=== PATIENT | female | born 1970 | race Caucasian/White ===

== ENCOUNTER 2016-11-21 10:21 | Outpatient (CLI) ==
[2016-04-26 04:55] VITALS: BMI 41.4
[2016-11-21 10:47] LABS: BASOPHILS % (AUTO) 0.4 % (0.0-3.0); EOSINOPHILS # (AUTO) 0.1 K/ul (0.0-0.7); HEMATOCRIT 45.8 % (37.0-47.0); HEMOGLOBIN 16.1 g/dl (12.0-16.0); IMMATURE GRANULOCYTE % (AUTO) 0.2 % (0.0-5.0); LYMPHOCYTES # (AUTO) 2.1 K/uL (0.60-3.4); MEAN CORPUSCULAR HEMOGLOBIN 30.3 pg (27.0-31.0); MEAN CORPUSCULAR HGB CONC 35.2 (31.8-35.4); MEAN CORPUSCULAR VOLUME 86.3 fl (81.0-99.0); MONOCYTES # (AUTO) 0.3 K/uL (0.4-2.0); MONOCYTES % (AUTO) 6.3 (0-10); NEUTROPHILS # (AUTO) 2.9 K/ul (2.0-6.9); NEUTROPHILS % (AUTO) 53.1; PLATELET COUNT 255 10^3/uL (140-440); RED BLOOD COUNT 5.31 10^6/ul (4.20-5.40); WHITE BLOOD COUNT 5.39 K/ul (4.6-10.2)
[2016-11-21 11:07] LABS: ALBUMIN 3.7 g/dL (3.4-5.0); ALBUMIN/GLOBULIN RATIO 0.93; ANION GAP 12.3; BILIRUBIN,TOTAL 0.68 mg/dL (0.00-1.20); BUN/CREATININE RATIO 12.22; CALCIUM 8.9 mg/dL (8.2-10.2); CHOL/HDL RATIO 5.7 (4.5-5.5); CREATININE 0.9 mg/dL (0.60-1.30); POTASSIUM 4.3 mmol/L (3.5-5.10); TOTAL PROTEIN 7.7 g/dL (6.4-8.2)
== END 2016-11-21 10:22 | disposition home or self-care (01) ==
LOC: LAB 10:21
PROVIDERS: ATTEND Nurse Practitioner Family
DX: E66.9 Obesity, unspecified (principal); L02.91 Cutaneous abscess, unspecified
CPT/HCPCS: 36415; 80053; 80061; 84439; 84443; 85025

== ENCOUNTER 2016-12-05 09:23 | Outpatient (CLI) ==
[2016-04-26 04:55] VITALS: BMI 41.4
--- NOTE | 2016-12-06 09:29 | MAMMO ---
EXAM: Digital screening mammogram HISTORY: Screening COMPARISON: None FINDINGS: Digital MLO and CC views of the right and left breast were performed. There are scatter ed fibroglandular densities. There is no evidence for mass, asymmetry, distortion, or suspicious ca lcifications in either breast. IMPRESSION: 1. No evidence of malignancy in the right or left breast. 2. Annual screening mammogram is recommended in one year. BIRADS category 1, negative examination
== END 2016-12-05 09:24 | disposition home or self-care (01) ==
LOC: RAD 09:23
PROVIDERS: ATTEND Nurse Practitioner Family
DX: Z12.31 Encounter for screening mammogram for malignant neoplasm of breast (principal)

== ENCOUNTER 2017-07-14 01:15 | Emergency (ER) ==
[2017-07-14 01:20] VITALS: BP 95/56; TEMP 98.9; BMI 41.1
[2017-07-14] MEDS ORDERED: XOPENEX 1.25 MG NEB STA (01:29)
[2017-07-14] MEDS ORDERED: DECADRON 4 MG/ML SDV IM STA (01:29)
[2017-07-14] MEDS ORDERED: DUONEB NEB STA (01:29)
[2017-07-14 01:47] LABS: BASOPHILS % (AUTO) 0.4 % (0.0-3.0); EOSINOPHILS # (AUTO) 0.2 K/ul (0.0-0.7); EOSINOPHILS % (AUTO) 3.3 % (0.0-7.0); HEMATOCRIT 40.2 % (37.0-47.0); HEMOGLOBIN 14.2 g/dl (12.0-16.0); IMMATURE GRANULOCYTE % (AUTO) 0.3 % (0.0-5.0); LYMPHOCYTES # (AUTO) 1.8 K/uL (0.60-3.4); LYMPHOCYTES % (AUTO) 25.2 (10.0-50.0); MEAN CORPUSCULAR HEMOGLOBIN 30.1 pg (27.0-31.0); MEAN CORPUSCULAR HGB CONC 35.3 (31.8-35.4); MEAN CORPUSCULAR VOLUME 85.4 fl (81.0-99.0); MONOCYTES # (AUTO) 0.5 K/uL (0.4-2.0); MONOCYTES % (AUTO) 7.1 (0-10); NEUTROPHILS # (AUTO) 4.4 K/ul (2.0-6.9); NEUTROPHILS % (AUTO) 63.7; PLATELET COUNT 198 10^3/uL (140-440); RED BLOOD COUNT 4.71 10^6/ul (4.20-5.40); WHITE BLOOD COUNT 6.94 K/ul (4.6-10.2)
--- NOTE | 2017-07-14 01:55 | DI ---
EXAM: PA and lateral views of the chest. HISTORY: Cough. FINDINGS: The bones are unremarkable. The cardiac silhouette and pulmonary vasculature are within no rmal limits. The costophrenic angles are clear. No infiltrate or consolidation. Impression: No acute cardiopulmonary disease.
[2017-07-14 02:05] LABS: FLU INTERNAL QC INTERNAL QC VALID; RAPID FLU A NEGATIVE (NEGATIVE); RAPID FLU B NEGATIVE (NEGATIVE)
[2017-07-14 02:05] LABS: ALBUMIN 3.7 g/dL (3.4-5.0); ALBUMIN/GLOBULIN RATIO 0.95; ANION GAP 14.9; BILIRUBIN,TOTAL 0.42 mg/dL (0.00-1.20); BUN/CREATININE RATIO 12.76; CALCIUM 9.2 mg/dL (8.2-10.2); CREATININE 0.94 mg/dL (0.60-1.30); POTASSIUM 3.9 mmol/L (3.5-5.10); TOTAL PROTEIN 7.6 g/dL (6.4-8.2)
[2017-07-14] MEDS ORDERED: SODIUM CHLORIDE 1,000 ML IV STA (02:42)
--- NOTE | 2017-07-14 04:07 | CT ---
EXAM: CT angiogram chest with intravenous contrast 07/14/2017. Multi planar reformatted images obta ined. MIP and three-dimensional reconstructed images provided HISTORY: Cough and elevated D-dimer COMPARISON: 07/14/2017, 04/26/2016 FINDINGS: The heart size appears within normal limits. There is no pericardial effusion. The aorta shows no acute process. There are no pulmonary arterial filling defects to suggest pulmonary embolus. Diffuse bilateral bronchial wall thickening. This is suggestive of bronchitis/bronchiolitis. Scatte red linear ground-glass densities may relate to areas of atelectasis and/or pneumonitis There is no pulmonary consolidation. No pleural effusion or pneumothorax. IMPRESSION: 1. No pulmonary embolus. 2. Diffuse bronchial wall thickening suggestive of bronchitis/bronchiolitis. 3. Scattered areas of atelectasis and/or pneumonitis. No focal pneumonia.
--- NOTE | 2017-07-14 05:07 | ED.PDOC ---
General ED Provider: Dr. KYUNG ALBRECHT-ER Chief Complaint: Shortness of Air Stated Complaint: josy been coughing for 4 days Time Seen by Physician: 01:20 Mode of Arrival: Walk-In Information Source: Patient Exam Limitations: No limitations [facility] Nursing and Triage Documentation Reviewed and Agree: Yes Respiratory Complaint Exam - Respiratory Complaint/Exam Onset/Duration: 4 ddays ago Symptoms Are: Still present Timing: Constant Initial Severity: Mild Current Severity: Mild Location: Chest Character: Reports: Productive cough Aggravating: Reports: URI Alleviating: Reports: Bronchodilators Associated Signs and Symptoms: Reports: Wheezing, URI. Denies: Rapid breathing , Dyspnea, Fever, Chills, Chest pain, Pleuritic chest pain, Hemoptysis, Dizziness, Calf pain, Calf swelling, Edema, Nasal congestion, Hoarseness, Sinus discomfort, Vomiting, Sore throat, Weight loss, Decreased oral intake, Increased thirst, Increased appetite, Increased urination Related History: Reports: Similar episode History of Healthcare-Acquired Pneumonia: No Related Surgical History: Reports: None Home Oxygen Use: No Recent Stress Test: No Recent Echo/LV Function: No Current Antibiotic Use: No Current Asthma Medication Use: Yes Respiratory Distress: None Inadequate Respiratory Effort: No Dysphagia Present: No Stridor Present: No JVD Present: No Accessory Muscle Use: No Review of Systems - Review Of Systems Constitutional: Reports: No symptoms Eyes: Reports: No symptoms Ears, Nose, Mouth, Throat: Reports: No symptoms Respiratory: Reports: Cough Cardiac: Reports: No symptoms GI: Reports: No symptoms : Reports: No symptoms Musculoskeletal: Reports: No symptoms Skin: Reports: No symptoms Neurological: Reports: No symptoms Endocrine: Reports: No symptoms Hematologic/Lymphatic: Reports: No symptoms All Other Systems: Reviewed and Negative Past Medical History - Past Medical History Previously Healthy: No Endocrine: Reports: None Cardiovascular: Reports: None Respiratory: Reports: Asthma Hematological: Reports: None Gastrointestinal: Reports: None Genitourinary: Reports: None Neuro/Psych: Reports: Seizure Musculoskeletal: Reports: Arthritis Cancer: Reports: None Last Menstrual Period: YEARS AGO - Surgical History General Surgical History: Reports: Hysterectomy - Family History Family History: Reports: Unknown - Social History Smoking Status: Current every day smoker Hx Substance Use: No Alcohol Screening: None Lives: With family - Immunizations Tetanus Shot up to Date: Yes Physical Exam - Physical Exam Appearance: Well-appearing, No pain distress, Well-nourished Eyes: HEIDY ENT: Ears normal, Nose normal, Oropharynx normal Neck: Supple Respiratory: Rhonchi Cardiovascular: RRR, Pulses normal, No rub, No murmur GI/: Soft, Nontender, No masses, Bowel sounds normal, No Organomegaly Musculoskeletal: Normal strength, ROM intact, No edema, No calf tenderness Skin: Warm, Dry, Normal color Neurological: Sensation intact, Motor intact, Reflexes intact, Cranial nerves intact, Alert, Oriented Psychiatric: Affect appropriate Interpretation - Radiology Interpretation Radiology Interpretation By: Radiologist Radiology Results: Negative Exam Interpreted: CT Scan Critical Care Note - Critical Care Note Total Time (mins): 0 Course - Course Hematology/Chemistry: 07/14/17 01:45 07/14/17 01:45 Orders, Labs, Meds: Lab Review 07/14/17 07/14/17 07/14/17 01:32 01:45 01:45 WBC 6.94 RBC 4.71 Hgb 14.2 Hct 40.2 MCV 85.4 MCH 30.1 MCHC 35.3 RDW Coeff of Jorden 12.9 Plt Count 198 Immature Gran % (Auto) 0.3 Neut % (Auto) 63.7 Lymph % (Auto) 25.2 Gentry % (Auto) 7.1 Eos % (Auto) 3.3 Baso % (Auto) 0.4 Immature Gran # (Auto) 0.0 Neut # 4.4 Lymph # 1.8 Gentry # 0.5 Eos # 0.2 Baso # 0.0 D-Dimer (Manual) Sodium 137 Potassium 3.9 Chloride 107 Carbon Dioxide 19 L Anion Gap 14.9 BUN 12 Creatinine 0.94 Estimated GFR (MDRD) 65.00 BUN/Creatinine Ratio 12.76 Glucose 98 Calcium 9.2 Total Bilirubin 0.42 AST 53 H ALT 25 Alkaline Phosphatase 59 B-Natriuretic Peptide Total Protein 7.6 Albumin 3.7 Globulin 3.9 Albumin/Globulin Ratio 0.95 Influenza A (Rapid) Negative Influenza B (Rapid) Negative 07/14/17 07/14/17 01:45 01:45 WBC RBC Hgb Hct MCV MCH MCHC RDW Coeff of Jorden Plt Count Immature Gran % (Auto) Neut % (Auto) Lymph % (Auto) Gentry % (Auto) Eos % (Auto) Baso % (Auto) Immature Gran # (Auto) Neut # Lymph # Gentry # Eos # Baso # D-Dimer (Manual) 1224.04 Sodium Potassium Chloride Carbon Dioxide Anion Gap BUN Creatinine Estimated GFR (MDRD) BUN/Creatinine Ratio Glucose Calcium Total Bilirubin AST ALT Alkaline Phosphatase B-Natriuretic Peptide 14 Total Protein Albumin Globulin Albumin/Globulin Ratio Influenza A (Rapid) Influenza B (Rapid) Orders Category Date Time Status EKG-(ED ONLY) Stat CARDIO 07/14/17 01:28 Completed NEBULIZER TREATMENT Stat CARDIO 07/14/17 01:29 Completed NPO REMINDER: IMAGING ONCE CARE 07/14/17 02:43 Completed ED IV/MEDIPORT/POWERPORT .ONCE EMERGENCY 07/14/17 02:42 Active B-TYPE NATRIURETIC PEPTIDE Stat LAB 07/14/17 01:45 Completed CBC W/ AUTO DIFF Stat LAB 07/14/17 01:45 Completed COMPREHENSIVE METABOLIC PANEL Stat LAB 07/14/17 01:45 Completed D-DIMER Stat LAB 07/14/17 01:45 Completed RAPID FLU A/B Stat LAB 07/14/17 01:32 Completed 0.9 % Sodium Chloride [Saline Flush] MEDS 07/14/17 02:42 Ordered 1 syr IVF PRN PRN Dexamethasone 4 mg/ml Inj [Decadron 4 mg/ml Sdv] MEDS 07/14/17 01:29 Discontinued 8 mg IM ONCE STA Ipratropium/Albuterol Neb [Duoneb] MEDS 07/14/17 01:29 Discontinued 1 vial NEB ONCE STA Levalbuterol HCl [Xopenex 1.25 mg] MEDS 07/14/17 01:29 Discontinued 1 vial NEB ONCE STA Sodium Chloride 0.9% [Sodium Chloride] 1,000 ml MEDS 07/14/17 02:42 Active IV 100 mls/hr CT CHEST PE PROTOCOL Stat RADS 07/14/17 02:42 Completed CXR [CHEST, 2 VIEWS PA & LAT] Stat RADS 07/14/17 01:28 Completed Medications Generic Name Dose Route Start Last Admin Trade Name Freq PRN Reason Stop Dose Admin Sodium Chloride 1,000 mls @ 100 mls/hr 07/14/17 02:42 07/14/17 04:00 Sodium Chloride IV 07/14/17 12:41 100 mls/hr .Q10H STA Administration Sodium Chloride 1 syr 07/14/17 02:42 07/14/17 03:58 Saline Flush IVF 1 syr PRN PRN Administration To flush IV Discontinued Medications Generic Name Dose Route Start Last Admin Trade Name Radha PRN Reason Stop Dose Admin Albuterol/Ipratropium 1 vial 07/14/17 01:29 07/14/17 02:08 Duoneb NEB 07/14/17 01:30 1 vial ONCE STA Administration Dexamethasone Sodium Phosphate 8 mg 07/14/17 01:29 07/14/17 01:37 Decadron 4 Mg/Ml Sdv IM 07/14/17 01:30 8 mg ONCE STA Administration Levalbuterol HCl 1 vial 07/14/17 01:29 07/14/17 02:18 Xopenex 1.25 Mg NEB 07/14/17 01:30 1 vial ONCE STA Administration Vital Signs: Temp Pulse Resp BP Pulse Ox 07/14/17 01:16 98.9 F 101 H 20 95/56 L 98 Departure - Departure Time of Disposition: 05:06 Disposition: HOME SELF-CARE Discharge Problem: Bronchitis Instructions: Acute Bronchitis (ED) Condition: Good Pt referred to PMD for follow-up: Yes Additional Instructions: biaxin 500mg bid x 7days , medrol dose pack--f/u with pcp Allergies/Adverse Reactions: Allergies amoxicillin Adverse Reaction (Verified 07/14/17 01:20) YEAST INFECTION codeine Adverse Reaction (Verified 07/14/17 01:20) N/V Home Medications: Ambulatory Orders 1 [No Reported Medications] 07/14/17 Disposition Discussed With: Patient
== END 2017-07-14 05:17 | disposition home or self-care (01) ==
LOC: ED 01:15
DX: J20.9 Acute bronchitis, unspecified (principal); F17.210 Nicotine dependence, cigarettes, uncomplicated
CPT/HCPCS: 36415; 80053; 83880; 85025; 85379; 87804; 93005; 93010; 94640; 96360; 96372; 99283

== ENCOUNTER 2018-04-23 10:47 | Outpatient (CLI) ==
--- NOTE | 2018-04-23 13:04 | DI ---
EXAM: Three views of the lumbar spine HISTORY: Lower back pain. COMPARISON: CT lumbar spine 04/26/2016 FINDINGS: There is mild leftward curvature of the lumbar spine. There is no acute compression fractu re. There is 0.3 cm of retrolisthesis of L1 on L2. There are few anterior disc osteophytes and mini mal facet arthropathy. Lumbosacral junction is intact. The soft tissues are unremarkable. IMPRESSION: 1. No acute compression fracture with grade 1 retrolisthesis of L1 on L2. 2. Minimal degenerative change and mild leftward curvature.
== END 2018-04-23 10:48 | disposition home or self-care (01) ==
LOC: RAD 10:47
PROVIDERS: ATTEND Emergency Medicine
DX: M54.5 Low back pain (principal); G89.29 Other chronic pain

== ENCOUNTER 2019-02-09 21:12 | Emergency (ER) ==
[2019-02-09 21:23] VITALS: BP 134/83; TEMP 98.8; BMI 44.3
--- NOTE | 2019-02-09 22:25 | ED.PDOC ---
General ED Provider: Dr. ALO TOLENTINO Chief Complaint: Shortness of Air Stated Complaint: sob,needs asthma care and nebulizer at home Time Seen by Physician: 21:25 Mode of Arrival: Walk-In Information Source: Patient Exam Limitations: No limitations Nursing and Triage Documentation Reviewed and Agree: Yes Does patient meet sepsis criteria?: No System Inflammatory Response Syndrome: Not Applicable Sepsis Protocol: For patient's 13 years and over: Temp is 96.8 and below OR 101 and greater Pulse >90 BPM Resp >20/minute Acutely Altered Mental Status Are patient's symptoms suggestive of a new infection, such as: -Pneumonia -Skin, Soft Tissue -Endocarditis -UTI -Bone, Joint Infection -Implantable Device -Acute Abdominal Infection -Wound Infection -Meningitis -Blood Stream Catheter Infection -Unknown Respiratory Complaint Exam - Asthma Complaint/Exam Onset/Duration: today Symptoms Are: Still present Timing: Constant Initial Severity: Moderate Current Severity: Mild Character: Reports: Wheezing Aggravating: Reports: Weather change Alleviating: Reports: Steroids, Inhalers, Nebulizers Related History: Reports: Similar episode Related Surgical History: Reports: None Status Asthmaticus Risk Factors: Reports: None Current Asthma Medication Usage: Yes Recent Antibiotics: No Respiratory Distress: Mild Accessory Muscle Use: No Diminished Breath Sounds: Yes Prolonged Expiratory Phase: Yes Unable to Speak Full Sentences: No Fatigue Present: No Differential Diagnoses: Acute Asthma, Bronchitis, Pneumonia, Reactive Airway Disease Review of Systems - Review Of Systems Constitutional: Reports: No symptoms Eyes: Reports: No symptoms Ears, Nose, Mouth, Throat: Reports: No symptoms Respiratory: Reports: Short of air, Wheezing Cardiac: Reports: No symptoms GI: Reports: No symptoms : Reports: No symptoms Musculoskeletal: Reports: No symptoms Neurological: Reports: No symptoms Endocrine: Reports: No symptoms Hematologic/Lymphatic: Reports: No symptoms All Other Systems: Reviewed and Negative Past Medical History - Past Medical History Previously Healthy: No Endocrine: Reports: None Cardiovascular: Reports: None Respiratory: Reports: Asthma Hematological: Reports: None Gastrointestinal: Reports: None Genitourinary: Reports: None Neuro/Psych: Reports: Seizure Musculoskeletal: Reports: Arthritis Cancer: Reports: None Last Menstrual Period: HAS HAD A HYSTERECTOMY - Surgical History General Surgical History: Reports: Hysterectomy - Family History Family History: Reports: Unknown - Social History Smoking Status: Current every day smoker, Heavy tobacco smoker Hx Substance Use: Yes (15 YEARS AGO, CLEAN NOW) Alcohol Screening: None - Immunizations Tetanus Shot up to Date: (UNKNOWN) Physical Exam - Physical Exam Appearance: Well-appearing Ill-appearing: None Pain Distress: None Eyes: HEIDY ENT: Ears normal, Nose normal Neck: Supple Respiratory: Airway patent, Breath sounds diminished, Wheezes Cardiovascular: RRR, Pulses normal, No rub GI/: Soft, Nontender, No masses Musculoskeletal: Normal strength, ROM intact, No edema Skin: Warm, Dry Neurological: Sensation intact Psychiatric: Affect appropriate Critical Care Note - Critical Care Note Total Time (mins): 0 Course - Course Orders, Labs, Meds: Orders Category Date Time Status NEBULIZER TREATMENT Stat CARDIO 02/09/19 22:30 Ordered NEBULIZER TREATMENT Stat CARDIO 02/09/19 22:47 Ordered IV [ED IV/MEDIPORT/POWERPORT] .ONCE EMERGENCY 02/09/19 22:29 Active 0.9 % Sodium Chloride [Saline Flush] MEDS 02/09/19 22:29 Ordered 1 syr IVF PRN PRN Albuterol Sulfate 0.083% Neb [Albuterol 0.083% Neb] MEDS 02/09/19 22:30 Discontinued 1 vial NEB ONCE STA Albuterol Sulfate 0.083% Neb [Albuterol 0.083% Neb] MEDS 02/09/19 22:47 Discontinued 1 vial NEB ONCE STA Methylprednisolone Sod Succ/Pf [Solu-Medrol 125 mg] MEDS 02/09/19 22:31 Discontinued 60 mg IVP ONCE STA Sodium Chloride 0.9% [Sodium Chloride] 1,000 ml MEDS 02/09/19 22:30 Discontinued IV BOLUS Medications Generic Name Dose Route Start Last Admin Trade Name Freq PRN Reason Stop Dose Admin Sodium Chloride 1 syr 02/09/19 22:29 02/09/19 23:04 Saline Flush IVF 1 syr PRN PRN Administration To flush IV Discontinued Medications Generic Name Dose Route Start Last Admin Trade Name Freq PRN Reason Stop Dose Admin Albuterol Sulfate 1 vial 02/09/19 22:30 02/09/19 22:40 Albuterol 0.083% Neb NEB 02/09/19 22:31 1 vial ONCE STA Administration Albuterol Sulfate 1 vial 02/09/19 22:47 Albuterol 0.083% Neb NEB 02/09/19 22:48 ONCE STA Sodium Chloride 1,000 mls @ 1,000 mls/hr 02/09/19 22:30 02/09/19 23:05 Sodium Chloride IV 02/09/19 23:29 1,000 mls/hr BOLUS STA Administration Methylprednisolone Sodium Succinate 60 mg 02/09/19 22:31 02/09/19 23:04 Solu-Medrol 125 Mg IVP 02/09/19 22:32 60 mg ONCE STA Administration Vital Signs: Temp Pulse Resp BP Pulse Ox 02/09/19 21:13 98.8 F 96 H 24 134/83 96 Departure - Departure Time of Disposition: 00:12 Disposition: HOME SELF-CARE Discharge Problem: COPD (chronic obstructive pulmonary disease) Instructions: Asthma (ED) Condition: Good Pt referred to PMD for follow-up: Yes IPMP verified?: No Additional Instructions: start using a nebulazer at [place].Take low dose chronic steroids, Visit PCP Allergies/Adverse Reactions: Allergies amoxicillin Adverse Reaction (Verified 02/09/19 21:22) YEAST INFECTION codeine Adverse Reaction (Verified 02/09/19 21:22) N/V Home Medications: Ambulatory Orders Ibuprofen 800 mg PO Q8H PRN 09/29/17 Meloxicam 7.5 mg PO BID PRN 02/09/19 Naproxen Sodium [Aleve] 2 - 3 tab PO DAILY PRN 02/09/19 Disposition Discussed With: Patient, Family
[2019-02-09] MEDS ORDERED: ALBUTEROL 0.083% NEB NEB STA ×2 (22:30→22:47)
[2019-02-09] MEDS ORDERED: SODIUM CHLORIDE 1,000 ML IV STA (22:30)
[2019-02-09] MEDS ORDERED: SOLU-MEDROL 125 MG IVP STA (22:31)
== END 2019-02-10 00:45 | disposition home or self-care (01) ==
LOC: ED 21:12
DX: J44.9 Chronic obstructive pulmonary disease, unspecified (principal); R06.02 Shortness of breath; F17.210 Nicotine dependence, cigarettes, uncomplicated
CPT/HCPCS: 94640; 96374; 99283